=== PATIENT | male | born 2000 | race Caucasian/White ===

== ENCOUNTER 2019-10-12 09:26 | Emergency (ER) | payer MEDICAID, SELFPAY ==
[2019-10-12 09:31] VITALS: BP 168/85; PULSE 108; RESP 16; TEMP 36.6; O2SAT 98
--- NOTE | 2019-10-12 10:10 | ED.GENADUL_ITS ---
Discharge Plan Disposition Patient Disposition: HOME Condition: Stable Discharge Details Chief Complaint: Sorethroat Clinical Impression: Pharyngitis ED Provider: Caleb Barba Home Meds and New Rx's Prescriptions: No Action epinephrine [EpiPen 2-Chris] 0.3 mg/0.3 mL Auto-Injector RF: 0 Discharge Instructions Instructions: Pharyngitis (ED) Additional Instructions: 1. Drink plenty of fluids. 2. Continue all medications as prescribed. 3. Acetaminophen 1000mg every 4 hours (up to 5 time a day) and/or ibuprofen 600mg every 6 hours as needed for fever or pain. Return to the Emergency Department (ED) if your condition worsens, does not improve as expected, or for ANY other concerns. Specifically, return if you have new or uncontrolled pain, worsening fever, difficulty breathing, vomiting, or are unable to drink fluids. Stand Alone Forms: School Release Medical Decision Making 22-year-old presents with acute throat pain since early this morning. Exam significant for hypopharyngeal erythema and bilateral tonsillar exudate. Uvula midline. Rapid strep performed prior to my evaluation which was negative. Discussed likely viral etiology with patient. Discussed management with aggressive oral intake and OTC analgesia. Given a excuse for classes for the day. Discharged with usual customary return instructions. Medical Records Medical records reviewed: Yes I reviewed the patient's medical records. HPI 19-year-old young man with unremarkable past medical history presents with 1 day of acute pharyngitis. Prem woke today with throat pain and noted bilateral tonsillar spots when looking at his oropharynx in the mirror. He has been able to drink fluids but notes that solids have been painful to swallow. He denies fever/chills, congestion, dyspnea, chest pain, palpitations, or neck pain /stiffness. General Date/Time Provider Initiated Documentation: 10/12/19 09:52 . Related Data Home Medications Medication Instructions Recorded Confirmed epinephrine [EpiPen 2-Chris] 10/12/19 Allergies Allergy/AdvReac Type Severity Reaction Status Date / Time bees Allergy Uncoded 10/12/19 09:34 General Stated Complaint: Sorethroat CORA: 4 Review of Systems All systems reviewed & are unremarkable except as noted in HPI and below [facility] Social History Smoking/Tobacco Use Status: Current every day Tobacco Type: cigarettes Alcohol Intake: never Substance use type: marijuana Exam Narrative Exam Narrative: Nursing note and vital signs have been reviewed and noted. GENERAL: alert, active, no acute distress, well -hydrated, well-nourished HEENT: atraumatic/normocephalic, PERRLA, EOMI, conjunctiva clear, external ears/canals normal, nasal mucosa normal; hypopharyngeal erythema with bilateral tonsillar exudate. NECK: supple, full range of motion, no mass, normal lymphadenopathy, no thyromegaly CARDIOVASCULAR: RRR, no murmurs, nl pulses, no edema PULMONARY: nl effort, no audible wheezing or stridor, nl breath sounds with no focal deficit. no chest wall tenderness ABDOMEN: soft, non-tender, non-distended, no mass, no organomegaly EXTREMITY: normal muscle tone, all joints with FROM, no deformity or tenderness SKIN: no exanthem appreciated NEURO: gross motor exam normal, normal stance and gait PSYCH: alert and oriented, Course Vital Signs Vital signs: Vital Signs Temperature 97.9 F 10/12/19 09:31 Pulse 108 H 10/12/19 09:31 Respiratory Rate 16 10/12/19 09:31 Blood Pressure 168/85 H 10/12/19 09:31 Pulse Oximetry 98 10/12/19 09:31 Temperature 97.9 F 10/12/19 09:31 Temperature Source Skin 10/12/19 09:31 Pulse 108 H 10/12/19 09:31 Respiratory Rate 16 10/12/19 09:31 Respiratory Effort Non-Labored 10/12/19 09:31 Blood Pressure 168/85 H 10/12/19 09:31 Blood Pressure Position Sitting 10/12/19 09:31 Pulse Oximetry 98 10/12/19 09:31 Oxygen Delivery Method Room Air 10/12/19 09:31 Oxygen Flow Rate 0 10/12/19 09:31 Pain Level 7 10/12/19 09:31
== END 2019-10-12 10:00 | disposition home or self-care (01) ==
LOC: ER 10:28
PROVIDERS: Emergency Provider Emergency Medicine; PCP Family Medicine
DX: J02.9 Acute pharyngitis, unspecified (principal)
CPT/HCPCS: 87880; 99283; 99282